=== PATIENT | female | born 1985 | race Caucasian/White ===

== ENCOUNTER → 2021-11-17 | Outpatient (CLI) | payer OTHER ==
--- NOTE | 2021-11-18 10:25 | US ---
EXAMINATION TYPE: US transvaginal DATE OF EXAM: 11/17/2021 COMPARISON: NONE CLINICAL HISTORY: N92.0 Menorrhagia. Pt states menorrhagia TECHNIQUE: Transvaginal (TV). Transvaginal sonographic images of the pelvis were acquired. Date of LMP: 10/20/2021 EXAM MEASUREMENTS: Uterus: 10.7 x 5.5 x 6.0 cm Endometrial Stripe: 1.1 cm Right Ovary: 2.5 x 1.8 x 2.4 cm Left Ovary: 2.8 x 1.7 x 2.4 cm 1. Uterus: Anteverted Heterogeneous, "bulky" in appearance, ill-defined hyperechoic area anterior to endometrium within uterine fundus= 1.2 x 1.1 x 1.6 cm 2. Endometrium: wnl 3. Right Ovary: wnl 4. Left Ovary: wnl 5. Bilateral Adnexa: wnl 6. Posterior cul-de-sac: wnl IMPRESSION: 1. Small fundal uterine fibroid.
== END | disposition home or self-care (01) ==
LOC: RADUSWWP 15:20
PROVIDERS: ATTEND Obstetrics & Gynecology
DX: D25.9 Leiomyoma of uterus, unspecified (principal); N92.0 Excessive and frequent menstruation with regular cycle
CPT/HCPCS: 76830